=== PATIENT | male | born 1975 | race Caucasian/White ===

== ENCOUNTER → 2020-07-17 10:05 | Outpatient (CLI) | payer OTHER, SELFPAY ==
[2020-07-17 12:08] LABS: Color, Urine Yellow (Yellow); Glucose, Dipstick 1000 mg/dl (Normal); Leukocyte Esterase-Dipstick Negative /ul (Negative); Nitrite-Dipstick Negative (Negative); Occult Blood-Urine Negative /ul (Negative); Protein-Dipstick 30 mg/dl (Negative); Specific Gravity, Urine 1.025 (1.002-1.030); Urine Bilirubin Dipstick Negative (Negative); Urine Clarity Clear (Clear); Urine Urobilinogen Normal (Normal)
[2020-07-17 12:10] LABS: Ketone-Dipstick 150 mg/dl (Negative)
[2020-07-17 12:16] LABS: Insulin 3.4 mU/L (2.6-37.6)
[2020-07-17 12:38] LABS: Microalbumin:Creatinine Ratio 319.6 mg/g CRE (<30 mg/g CRE)
[2020-07-17 13:31] LABS: ALB/GLOB Ratio 0.7 RATIO (0.9-2.4); AST(SGOT) 15 U/L (15-37); Alanine Aminotransfer ALT/SGPT 24 U/L (16-61); Albumin, Serum 3.1 g/dL (3.2-5.0); Alkaline Phosphatase 90 U/L (45-117); Anion Gap 12 (5-15); BUN 11 mg/dL (7-18); BUN/Creat Ratio 14.1 RATIO (10-20); Calcium,Total 8.7 mg/dL (8.5-10.1); Chloride 98 mmol/L (98-107); Cholesterol 326 mg/dL (200); Creatinine, Serum 0.78 mg/dL (0.70-1.30); EST Glomerular Filtration Rate 115 mL/min (>60); Est Glom Filt Rate - Afr Amer 139 mL/min (>60); Globulin 4.6 g/dL (2.2-4.2); Glucose 282 mg/dL (74-106); High Density Lipoprotein 29 mg/dL; Potassium 3.8 mmol/L (3.5-5.1); Protein, Total 7.7 g/dL (6.4-8.2); Sodium Level 132 mmol/L (136-145); Triglycerides 1336 mg/dL
== END ==
PROVIDERS: PCP Family Medicine; Referring Provider Family Medicine; Visit Provider Family Medicine
DX: Z00.00 Encounter for general adult medical examination without abnormal findings (principal); R73.9 Hyperglycemia, unspecified
CPT/HCPCS: 36415; 80053; 80061; 81002; 82043; 82570; 83525